=== PATIENT | male | born 1960 | race Caucasian/White ===

== ENCOUNTER → 2021-01-08 09:35 | Outpatient (CLI) | payer BC, SELFPAY ==
[2021-01-08] MEDS: COVID-19 VACC #1, MRNA(MOD) 100 MCG/0.5 ML VIAL IM (09:45)
== END ==
PROVIDERS: Visit Provider Internal Medicine
DX: Z23 Encounter for immunization (principal)
CPT/HCPCS: 0011A; 91301

== ENCOUNTER → 2021-02-05 09:21 | Outpatient (CLI) | payer BC, SELFPAY ==
[2021-02-05] MEDS: COVID-19 VACC #2, MRNA(MOD) 100 MCG/0.5 ML VIAL IM (09:29)
== END ==
PROVIDERS: Visit Provider Internal Medicine
DX: Z23 Encounter for immunization (principal)
CPT/HCPCS: 0012A; 91301